=== PATIENT | female | born 1970 | race Caucasian/White ===

== ENCOUNTER 2017-12-11 16:10 | Emergency (ER) | payer OTHER ==
--- NOTE | 2017-12-11 16:44 | EDPHY ---
H & P Stated Complaint: l abd pain Time Seen by Provider: 12/11/17 16:29 HPI/ROS: Chief Complaint: Abdominal pain HPI: 47-year-old woman had a sudden onset of left lower abdominal pain earlier this afternoon. She had some nausea but no vomiting. Pain came on suddenly. Is a 9/10. Does not have a history of similar episodes in the past. Does have a history of a total abdominal hysterectomy and a left oophorectomy secondary to uterine fibroids and menorrhagia 4 years ago. No recent urinary symptoms. No fevers or chills. No diarrhea. Had a soft stool this morning. There are no aggravating or alleviating factors. 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 ROS: 10 point Review of Systems is negative except as noted in the HPI. PMH: Uterine fibroids status post hysterectomy and left oophorectomy Social History: No smoking, no alcohol, no recreational drug use Family History: non-contributory Physical Exam: Gen: Awake, Alert, No Distress HEENT: Nose: no rhinorrhea Eyes: PERRLA, EOMI Mouth: Moist mucosa Neck: Supple, no JVD Abd: Soft, left lower quadrant tenderness present with voluntary guarding Back: no CVA tenderness, no midline tenderness Ext: no edema, non-tender Skin: no rash Neuro: CN II-XII intact, Sensation grossly intact, Strength 5/5 in bilateral upper and lower extremities - Personal History LMP (Females 10-55): Hysterectomy Current Tetanus Diphtheria and Acellular Pertussis (TDAP): Yes Tetanus Vaccine Date: 2011 - Medical/Surgical History Hx Asthma: Yes Hx Chronic Respiratory Disease: No Hx Diabetes: No Hx Cardiac Disease: No Hx Renal Disease: No Hx Cirrhosis: No Hx Alcoholism: No Hx HIV/AIDS: No Hx Splenectomy or Spleen Trauma: No Other PMH: fibroids, childhood asthma, tonsillectomy - Social History Smoking Status: Former smoker Constitutional: Initial Vital Signs Temperature (C) 36.6 C 12/11/17 16:18 Heart Rate 61 12/11/17 16:18 Respiratory Rate 17 12/11/17 16:18 Blood Pressure 142/100 H 12/11/17 16:18 O2 Sat (%) 100 12/11/17 16:18 O2 Delivery Mode Room Air Allergies/Adverse Reactions: Penicillins Allergy (Severe, Verified 12/11/17 16:17) Anaphylaxis clindamycin Allergy (Intermediate, Verified 12/11/17 16:17) Vomiting HAYFEVER Allergy (Mild, Uncoded 10/21/13 11:02) ITCHY EYES,STUFFY NOSE Home Medications: Medication Instructions Recorded NK [No Known Home Meds] 12/11/17 Medical Decision Making - Diagnostics Imaging Results: Imaging Impressions Abdomen CT 12/11/17 18:07 Impression: 1. Left anterior pelvic wall hernia defect with inflamed mesenteric fat extending through the defect likely resulting in the patient's abdominal pain. Recommend surgical consult. 2. No evidence of diverticulitis, bowel obstruction, or pneumoperitoneum. 3. Small amount of free fluid in the pelvis. Findings and recommendations discussed with Emergency Department physician, Ehsan Chino MD at 19:01 hour, 12/11/2017. Final report concurs with initial preliminary interpretation. Imaging: Discussed imaging studies w/ ladies attendant Radiologist ED Course/Re-evaluation: Patient's blood work is normal. Urinalysis is negative. She does have a her non incarcerated hernia on CT scan with some mesenteric fat contained and some inflammation which is likely causing her symptoms. She is feeling much improved. Plan will be to discharge home with outpatient follow-up with General surgery for an elective hernia repair. No evidence of acute intra- abdominal surgical process at this time. No indications for antibiotics. - Data Points Laboratory Results: Laboratory Results 12/11/17 16:37 12/11/17 16:37 12/11/17 12/11/17 12/11/17 17:56 16:37 16:37 WBC 10.29 10^3/uL H 10^3/uL (3.80-9.50) RBC 4.68 10^6/uL 10^6/uL (4.18-5.33) Hgb 15.1 g/dL g/dL (12.6-16.3) Hct 43.7 % % (38.0-47.0) MCV 93.4 fL fL (81.5-99.8) MCH 32.3 pg pg (27.9-34.1) MCHC 34.6 g/dL g/dL (32.4-36.7) RDW 12.2 % % (11.5-15.2) Plt Count 332 10^3/uL 10^3/uL (150-400) MPV 9.4 fL fL (8.7-11.7) Neut % (Auto) 62.1 % % (39.3-74.2) Lymph % (Auto) 28.0 % % (15.0-45.0) [place] % (Auto) 6.2 % % (4.5-13.0) Eos % (Auto) 2.4 % % (0.6-7.6) Baso % (Auto) 0.7 % % (0.3-1.7) Nucleat RBC Rel Count 0.0 % % (0.0-0.2) Absolute Neuts (auto) 6.39 10^3/uL 10^3/uL (1.70-6.50) Absolute Lymphs (auto) 2.88 10^3/uL 10^3/uL (1.00-3.00) Absolute Monos (auto) 0.64 10^3/uL 10^3/uL (0.30-0.80) Absolute Eos (auto) 0.25 10^3/uL 10^3/uL (0.03-0.40) Absolute Basos (auto) 0.07 10^3/uL 10^3/uL (0.02-0.10) Absolute Nucleated RBC 0.00 10^3/uL 10^3/uL (0-0.01) Immature Gran % 0.6 % % (0.0-1.1) Immature Gran # 0.06 10^3/uL 10^3/uL (0.00-0.10) Sodium 138 mEq/L mEq/L (135-145) Potassium 3.7 mEq/L mEq/L (3.3-5.0) Chloride 99 mEq/L mEq/L (97-110) Carbon Dioxide 24 mEq/l mEq/l (22-31) Anion Gap 15 mEq/L mEq/L (8-16) BUN 12 mg/dL mg/dL (7-23) Creatinine 0.7 mg/dL mg/dL (0.6-1.0) Estimated GFR > 60 Glucose 98 mg/dL mg/dL (70-100) Calcium 10.2 mg/dL mg/dL (8.5-10.4) Urine Color YELLOW Urine Appearance HAZY Urine pH 6.0 (5.0-7.5) Ur Specific [place] 1.014 (1.002-1.030) Urine Protein NEGATIVE (NEGATIVE) Urine Ketones 1+ H (NEGATIVE) Urine Blood NEGATIVE (NEGATIVE) Urine Nitrate NEGATIVE (NEGATIVE) Urine Bilirubin NEGATIVE (NEGATIVE) Urine Urobilinogen NEGATIVE EU EU (0.2-1.0) Ur Leukocyte Esterase NEGATIVE (NEGATIVE) Urine Glucose NEGATIVE (NEGATIVE) Medications Given: Discontinued Medications Sodium Chloride (Ns) 1,000 mls @ 0 mls/hr IV ONCE ONE; Wide Open PRN Reason: Protocol Stop: 12/11/17 16:51 Last Admin: 12/11/17 16:53 Dose: 1,000 mls Morphine Sulfate (Morphine) 4 mg IVP ONCE ONE Stop: 12/11/17 16:51 Last Admin: 12/11/17 16:53 Dose: 4 mg Morphine Sulfate (Morphine) 4 mg IVP ONCE ONE Stop: 12/11/17 18:09 Last Admin: 12/11/17 19:00 Dose: Not Given Ondansetron HCl (Zofran) 4 mg IVP EDNOW ONE Stop: 12/11/17 16:51 Last Admin: 12/11/17 16:52 Dose: 4 mg Departure - Departure Disposition: Home, Routine, Self-Care Clinical Impression: Ventral hernia Condition: Good Instructions: Ventral Hernia (ED) Additional Instructions: Alternate acetaminophen (1000 mg) with ibuprofen (400 mg) every 4 hours as needed for pain. Follow up with general surgeon in 4-5 days for consultation for possible elective hernia repair. Return to the emergency department for increasing abdominal pain, uncontrolled nausea vomiting, fevers, chills, or any other concerns. Referrals: Nba Lau MD [Primary Care Provider] - As per Instructions Aung Villela MD [Medical Doctor] - As per Instructions
[2017-12-11] MEDS ORDERED: NS 1,000 ML IV ONE (16:50)
[2017-12-11] MEDS ORDERED: ONDANSETRON 4 MG/2 ML VIAL IVP ONE (16:50)
[2017-12-11 16:58] LABS: PLATELET COUNT 332 10^3/uL (150-400)
[2017-12-11] MEDS ORDERED: IOPAMIDOL (ISOVUE-300) 100 ML BTL ONE (18:13)
[2017-12-11 19:32] VITALS: BP 110/73
== END 2017-12-11 19:29 | disposition home or self-care (01) ==
DX: K43.9 Ventral hernia without obstruction or gangrene (principal); E86.9 Volume depletion, unspecified; J45.909 Unspecified asthma, uncomplicated; Z87.891 Personal history of nicotine dependence
CPT/HCPCS: 96374; J2270; J2405; Q9967

== ENCOUNTER 2017-12-26 08:30 | Day surgery (SDC) | payer OTHER ==
[2017-12-26] MEDS ORDERED: AZITHROMYCIN IV 500 MG in NS 250 ML IV ONE (08:36)
[2017-12-26] MEDS ORDERED: LR 1,000 ML IV ONE (08:37)
--- NOTE | 2017-12-26 09:20 | PDANEPAE ---
ANE History of Present Illness 47 year old female presents for robotic assisted laparoscopic ventral hernia repair. ANE Past Medical History - Cardiovascular History Hx Hypertension: No Hx Arrhythmias: No Hx Chest Pain: No Hx Coronary Artery / Peripheral Vascular Disease: No Hx CHF / Valvular Disease: No Cardiovascular History Comment: NO CP - Pulmonary History Hx COPD: No Hx Asthma/Reactive Airway Disease: Yes Hx Recent Upper Respiratory Infection: No Hx Oxygen in Use at Home: No Hx Sleep Apnea: No Sleep Apnea Screening Result - Last Documented: Negative Pulmonary History Comment: OCCASIONAL EXERCISE INDUCED ASTHMA- USES ALBUTEROL INHALER RARELY - Neurologic History Hx Cerebrovascular Accident: No Hx Seizures: No Hx Dementia: No - Endocrine History Hx Diabetes: No Hypothyroid: No Hyperthyroid: No Obesity: yes - Renal History Hx Renal Disorders: No - Liver History Hx Hepatic Disorders: No - Neurological & Psychiatric Hx Hx Neurological and Psychiatric Disorders: No - Cancer History Hx Cancer: No - Congenital Disorder History Hx Congenital Disorders: No - GI History Hx Gastrointestinal Disorders: No Gastrointestinal History Comment: GERD - Other Health History Other Health History: UTERINE FIFROID, HEAVY AND IRREG BLDG. IMPLANT PLACED UPPER R- NO TOOTH YET. ANEMIC, ON IRON - Chronic Pain History Chronic Pain: No - Surgical History Prior Surgeries: HYSTERECTOMY 2014. OATS PROCEDURE 2016. C SECT '01. TONSILS CHILD ANE Review of Systems Review of systems is: negative Review of Systems: - Exercise capacity Exercise capacity: >=4 METS METS (RN): 5 METS ANE Patient History - Allergies Allergies/Adverse Reactions: Penicillins Allergy (Severe, Verified 12/11/17 16:17) Anaphylaxis clindamycin Allergy (Intermediate, Verified 12/11/17 16:17) Vomiting acetaminophen [From Percocet] Allergy (Verified 12/26/17 08:57) oxycodone [From Percocet] Allergy (Verified 12/26/17 08:57) HAYFEVER Allergy (Mild, Uncoded 10/21/13 11:02) ITCHY EYES,STUFFY NOSE - Home Medications Home medications: home medication list seen and reviewed Home Medications: Albuterol 12/25/17 [Last Taken 12/12/17] Omeprazole 12/25/17 [Last Taken 12/25/17] - NPO status NPO Status: no food or drink >8 hours NPO Since - Liquids (Date): 12/25/17 NPO Since - Liquids (Time): 22:00 NPO Since - Solids (Date): 12/25/17 NPO Since - Solids (Time): 20:00 - Anes Hx Anes Hx: no prior problems - Smoking Hx Smoking Status: Former smoker Marijuana use: No - Alcohol Use Alcohol Use: Occasionally - Family Anes Hx Family Anes Hx: neg - N/A Family Hx Anesthesia Complications: NONE ANE Labs/Vital Signs - Vital Signs Vital Signs: reviewed preoperatively; see RN documention for details Blood Pressure: 121/72 Heart Rate: 62 Respiratory Rate: 16 O2 Sat (%): 98 Height: 162.56 cm Weight: 81.647 kg ANE Physical Exam - Airway Neck exam: FROM Mallampati Score: Class 2 Mouth exam: normal dental/mouth exam - Pulmonary Pulmonary: no respiratory distress - Cardiovascular Cardiovascular: regular rate and rhythym - ASA Status ASA Status: II ANE Anesthesia Plan Anesthesia Plan: general endotracheal anesthesia Total IV Anesthesia: No
--- NOTE | 2017-12-26 09:57 | PDHPUP ---
History & Physical Update H&P update statement: This history and physical update is based on an assessment of the patient which was completed after admission or registration (within 24 hours), but prior to the surgery/procedure. H&P update: H&P reviewed & patient examined, no change in patient's condition since H&P completed
[2017-12-26] MEDS ORDERED: BUPIVACAINE 0.25% 30 ML SDV ONE (10:20)
[2017-12-26] MEDS ORDERED: EPINEPHrine 1 MG/ML INJ ONE (10:20)
[2017-12-26] MEDS ORDERED: MIDAZOLAM 2 MG/2 ML VIAL IVP ONE (10:25)
[2017-12-26] MEDS ORDERED: PROPOFOL 200 MG/20 ML VIAL ONE (10:29)
[2017-12-26] MEDS ORDERED: ROCURONIUM 50 MG/5 ML VIAL ONE ×2 (10:29→11:22)
[2017-12-26] MEDS ORDERED: fentaNYL 100 MCG/2 ML INJ ONE ×2 (10:29→12:29)
[2017-12-26] MEDS ORDERED: LIDOCAINE 2% 5 ML SDV ONE (10:29)
[2017-12-26] MEDS ORDERED: LIDOCAINE 2% JELLY 5 ML TUBE ONE (10:30)
[2017-12-26] MEDS ORDERED: DEXAMETHASONE 4 MG/ML VIAL ONE (10:36)
[2017-12-26] MEDS ORDERED: ONDANSETRON 4 MG/2 ML VIAL ONE (10:36)
[2017-12-26] MEDS ORDERED: PHENYLEPHRINE HCL 100 MCG/ML SYR IVP PRN (11:23)
[2017-12-26] MEDS ORDERED: HYDROmorphONE/DILAUDID 1 MG/ML INJ IVP PRN (11:23)
[2017-12-26] MEDS ORDERED: LR 500 ML IV PRN (11:23)
[2017-12-26] MEDS ORDERED: ONDANSETRON 4 MG/2 ML VIAL IVP PRN (11:23)
[2017-12-26] MEDS ORDERED: NALOXONE HCL 0.4 MG/ML INJ IVP PRN (11:23)
--- NOTE | 2017-12-26 12:16 | POSTOPPROG ---
Post Op Note Date of Operation: 12/26/17 Surgeon: Aung Villela Network Liaison: RENU Hdez Anesthesiologist: Scotty Anesthesia: GET(General Endotracheal) Pre-op Diagnosis: ventral hernia Post-op Diagnosis: same Procedure: robotic assisted transabdominal preperitoneal hernia repair c mesh Findings: small 2cm defect in LLQ, 9cm Covidien mesh Inf/Abcess present in the surg proc area at time of surgery?: No EBL: Minimal Specimen(s): per-peritoneal fat
[2017-12-26] MEDS: fentaNYL 100 MCG/2 ML INJ IVP PRN ×2 (12:36→12:43)
[2017-12-26] MEDS ORDERED: HYDROCODONE/APAP 5/325 TAB PO PRN (13:28)
--- NOTE | 2017-12-26 13:30 | POSTANESTH ---
Post Anesthetic Evaluation Cardiovascular Status: Normal, Stable, Similar to Pre-Op Cond Respiratory Status: Normal, Stable, Similar to Pre-op Cond. Level of Consciousness/Mental Status: Can Participate in Eval, Alert and Oriented Pain Control: Adequate, Prn Tx Ordered Nausea/Vomiting Control: Adequate, Prn Tx Ordered Complications Possibly Related to Anesthesia: None Noted
[2017-12-26 15:29] VITALS: BP 110/80
--- NOTE | 2017-12-26 16:33 | GOP ---
[f rep st] OPERATIVE REPORT DATE OF OPERATION: 12/26/2017 SURGEON: Aung Villela MD RECORDINGS LIBRARIAN: Mirella Pinto, certified surgical esol teacher assistant. ANESTHESIA: General endotracheal. ANESTHESIOLOGIST: Dr. Ehsan Fajardo. PREOPERATIVE DIAGNOSIS: Left lower quadrant ventral hernia. POSTOPERATIVE DIAGNOSIS: Left lower quadrant ventral hernia. PROCEDURE PERFORMED: Robotic assisted transabdominal preperitoneal hernia repair with mesh. FINDINGS: Small 2 cm defect in the left lower quadrant consistent with preoperative imaging and symp toms. Hernia was successfully reapproximated and buttressed with a 9 cm Symbotex mesh. SPECIMENS: Preperitoneal fat. ESTIMATED BLOOD LOSS: 5 cc. DESCRIPTION OF PROCEDURE: The patient was greeted in the preoperative suite, and once again, risks, benefits, and alternatives were discussed. Consent was signed. She was then brought back to the ope rative suite, placed on the OR table in supine position. After all anesthesia machines, including SC Ds were on and functioning, a [employer] time-out was performed. After successful ind uction of general anesthesia, the patient's abdomen was prepped and draped in typical sterile fashion . I successfully entered the abdomen via a stab incision in the left upper quadrant. A Veress needle w as placed through this. I achieved pneumoperitoneum to 15 mmHg CO2, which was well tolerated by the patient in the right upper quadrant, I then using a 5 mm Visiport successfully entered the patient's abdomen. I inspected the viscera and removed the Veress needle. I then placed 2 additional 8 mm tro cars, 1 in the right lower, 1 in the left upper quadrant, both under direct visualization, and then u psized my initial 5 mm trocar to an 8 as well. The patient was then slightly rotated to the right. The robot was then successfully docked. I turned my attention toward the area of concern. There was a bulge in the preperitoneal space. I s uccessfully scored and opened the peritoneum and entered the preperitoneal cavity and identified an a pproximate 2 cm defect in the left lower quadrant, which had been infiltrated with preperitoneal fat. I successfully reduced the fat out of this and sent this off for specimen. I then inspected the de fect. It measured approximately 2 cm. I closed the defect with a running 0 Stratafix suture noting excellent reapproximation. I then brought a 9 cm Symbotex mesh into the field. I attached it both s uperiorly and inferiorly in the preperitoneal space and then closed the peritoneum over this via sal sabdominal approach with a running V-Loc suture. Pneumoperitoneum was then evacuated. Ports were removed and closed with running 4-0 Monocryl over wh ich Dermabond was placed. The patient was then extubated in the operative suite and taken to the PAC U in satisfactory condition. DRAINS: None. COUNTS: All counts were reported as correct x2. /[id number]/MODL
== END 2017-12-26 14:27 | disposition home or self-care (01) ==
LOC: FSGY 08:30
PROVIDERS: ATTEND Surgery
PROC: 0WUF4JZ Supplement Abdominal Wall with Synthetic Substitute, Percutaneous Endoscopic Approach (ICD-10-PCS; principal; 2017-12-26 10:15)
PROC: 0WQF4ZZ Repair Abdominal Wall, Percutaneous Endoscopic Approach (ICD-10-PCS; principal; 2017-12-26 10:15)
DX: K43.9 Ventral hernia without obstruction or gangrene (principal)
CPT/HCPCS: C1781; J0171; J0456; J1100; J2250; J2405; J2704; J3010

== ENCOUNTER 2018-08-16 17:20 | Emergency (ER) | payer OTHER | END 2018-08-16 18:04 | disposition left against medical advice (07) | LOC: CED 17:20 | DX: Z53.21 Procedure and treatment not carried out due to patient leaving prior to being seen by health care provider (principal) ==

== ENCOUNTER → 2018-11-27 | Outpatient (CLI) | payer OTHER | LOC: BRMIMAGING 08:39 ==